=== PATIENT | male | born 1935 | race Caucasian/White ===

== ENCOUNTER 2018-12-24 10:55 | Emergency (ER) | payer MEDICARE, OTHER ==
[~2018-12-24] VITALS: Ht 180.3 cm; Wt 84.5 kg
[2018-12-24] MEDS ORDERED: QUIN10TA32 PO (11:22)
[2018-12-24] MEDS ORDERED: ASPI81CH33 PO (11:22)
[2018-12-24] MEDS ORDERED: HYDR25TAB PO (11:22)
[2018-12-24 11:47] LABS: BASO % 0.3 % (0.0-1.0); EOS # 0.4 10^3/uL (0.0-0.50); EOS % 5.6 % (0.0-3.0); HEMATOCRIT 46.9 % (42.0-52.0); HEMOGLOBIN 15.9 g/dl (13.5-17.5); LYMPH # 2.6 10^3/uL (1.5-4.5); LYMPH % 35.9 % (24.0-44.0); MEAN CORPUSCULAR HEMOGLOBIN 30.8 pg (27.0-33.0); MEAN CORPUSCULAR HGB CONC 33.9 g/dl (32.0-36.5); MEAN CORPUSCULAR VOLUME 90.7 fl (80.0-96.0); MONO # 0.7 10^3/uL (0.0-0.8); MONO % 9.2 % (0.0-5.0); NEUTROPHILS # 3.5 10^3/uL (1.8-7.7); NEUTROPHILS % 48.7 % (36.0-66.0); PLATELET COUNT, AUTOMATED 255 10^3/uL (150-450); RED BLOOD COUNT 5.17 10^6/uL (4.30-6.10); WHITE BLOOD COUNT 7.3 10^3/uL (4.0-10.0)
[2018-12-24 12:18] LABS: ALBUMIN 3.5 GM/DL (3.2-5.2); ALT/SGPT 23 U/L (12-78); BILIRUBIN,TOTAL 0.4 MG/DL (0.2-1.0); BLOOD UREA NITROGEN 21 MG/DL (7-18); CALCIUM LEVEL 8.9 MG/DL (8.8-10.2); CARBON DIOXIDE LEVEL 25 MEQ/L (21-32); CHLORIDE LEVEL 107 MEQ/L (98-107); CREATININE FOR GFR 0.88 MG/DL (0.70-1.30); GLOMERULAR FILTRATION RATE > 60.0 (>35); GLUCOSE, FASTING 110 MG/DL (70-100); POTASSIUM SERUM 4.2 MEQ/L (3.5-5.1); SODIUM LEVEL 138 MEQ/L (136-145); TOTAL PROTEIN 6.9 GM/DL (6.4-8.2)
--- NOTE | 2018-12-24 12:25 | REP ---
CT Head without contrast HISTORY: Dizziness COMPARISON: None Areas of decreased attenuation are present in the periventricular white matter. This represents small-vessel ischemic disease. There is no intraparenchymal hemorrhage, acute infarct, mass or midline shift. The ventricular system and cortical sulci as well as subarachnoid space in the posterior fossa are dilated consistent with moderate volume loss. There is no extra cerebral collection. There is no fracture. The visualized sinuses are clear. IMPRESSION: 1. Small vessel ischemic disease. 2. Moderate volume loss. Electronically Signed by Kwame Cedillo MD 12/24/2018 12:16 P
--- NOTE | 2018-12-24 12:40 | REP ---
Portable chest, single AP sitting view, 12:08 p.m.: There are no comparisons. The lung rangel are clear. The cardiac size is upper normal. The geovanni, mediastinum, skeletal structures are unremarkable except for cephalic migration of the humeral heads bilaterally, indicating chronic impingement. Impression: Essentially negative portable chest. There are findings compatible with chronic bilateral shoulder impingement. Electronically Signed by Anurag Deutsch MD 12/24/2018 12:33 P
[2018-12-24 12:44] LABS: CPK CREATINE PHOSPHOKINASE 77 U/L (39-308); MB/CK RELATIVE INDEX 2.21 (< OR =4); TROPONIN I < 0.02 NG/ML (< 0.10)
[2018-12-24 15:48] LABS: CPK CREATINE PHOSPHOKINASE 79 U/L (39-308); MB/CK RELATIVE INDEX 1.52 (< OR =4); TROPONIN I < 0.02 NG/ML (< 0.10)
[2018-12-24] MEDS ORDERED: 24hr Holter (16:23)
[2018-12-24 16:27] VITALS: BP 148/74
[2018-12-24] MEDS ORDERED: NEOSPORIN OINT 0.9 GM PKT (FLOOR STOCK) As Ordered ONE (16:27)
[2018-12-24] MEDS ORDERED: METAL LOCK LOOP XX ONE (16:27)
--- NOTE | 2018-12-25 21:15 | ECGEPIP ---
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
--- NOTE | 2018-12-25 21:18 | ECGEPIP ---
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
== END 2018-12-24 16:36 | disposition home or self-care (01) ==
LOC: M ED 10:55
DX: R55 Syncope and collapse (principal); I44.0 Atrioventricular block, first degree; I10 Essential (primary) hypertension; N40.0 Benign prostatic hyperplasia without lower urinary tract symptoms; Z79.899 Other long term (current) drug therapy; Z79.82 Long term (current) use of aspirin

== ENCOUNTER → 2018-12-24 | Outpatient (CLI) | payer MEDICARE, OTHER ==
[~2018-12-24] MED LIST: 24hr Holter; ASPI81CH33 PO; HYDR25TAB PO; QUIN10TA32 PO
--- NOTE | 2018-12-27 16:04 | HOLTMON ---
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 Predominantly sinus rhythm with heart rates ranging from 44 bpm to maximum of 105 bpm; average heart rate was 65 bpm. No atrial fibrillation. Occasional PVCs including rare couplets, bigeminy, trigeminy, and atrial runs. The longest And fastest atrial run was 4 beats. Frequent PVCs including 90 couplets and 1 bigeminy episode and 38 trigeminy episodes. No ventricular tachycardia. Electronically Signed On 12-27-2018 16:04:33 EDT by Rajan Sanderson
== END ==
LOC: M EKG 16:50
PROVIDERS: ATTEND Emergency Medicine
DX: R55 Syncope and collapse (principal)

== ENCOUNTER → 2019-09-23 | Outpatient (CLI) | payer MEDICARE, OTHER ==
--- NOTE | 2019-09-23 14:17 | REP ---
CHEST, TWO VIEWS: Two views of the chest are performed and compared to prior study 12/24/2018. There is mild bibasilar fibroatelectatic change with no evidence of infiltrate. Heart is normal in size. There is mild calcification of the thoracic aorta. The mediastinal silhouette is unchanged. There are mild degenerative changes of the spine. IMPRESSION: Mild bibasilar fibroatelectatic change without acute infiltrate. Electronically Signed by Anurag Vasques MD 09/23/2019 06:07 P
== END ==
LOC: M WUC 10:06
PROVIDERS: ATTEND Internal Medicine
DX: R05 Cough (principal)

== ENCOUNTER → 2020-11-18 | Outpatient (REF) | payer MEDICARE, OTHER ==
[~2020-11-18] MED LIST changes: +HYDR-3490 PO; -HYDR25TAB PO
[2020-11-18 17:46] LABS: FOLATE 12.9 NG/ML
== END ==
LOC: M LAB REF 16:13
PROVIDERS: ATTEND Internal Medicine
DX: R41.81 Age-related cognitive decline (principal)

== ENCOUNTER → 2021-08-04 | Outpatient (CLI) | payer MEDICARE, OTHER ==
--- NOTE | 2021-08-04 14:47 | REP ---
INDICATION: ACUTE BRONCHITIS. COMPARISON: Multiple the latest 09/23/2019 TECHNIQUE: PA and lateral FINDINGS: Cardiomediastinal silhouette is unchanged. The heart is not enlarged. There is a new opacity in the right CP angle. Lung rangel are otherwise clear and stable. There is no change in the osseous structures. IMPRESSION: There is a new right CP angle opacity. This could reflect subsegmental atelectatic change or early pneumonia. Follow-up is suggested. <Electronically signed by Jn Fountain > 08/04/21 [id number]
== END ==
LOC: M WUC 13:15
PROVIDERS: ATTEND Physician Assistant
DX: J20.9 Acute bronchitis, unspecified (principal); R91.8 Other nonspecific abnormal finding of lung field